=== PATIENT | male | born 1950 | race Caucasian/White ===

== ENCOUNTER → 2024-10-08 07:33 | Outpatient (REF) | payer MEDICARE, BC, SELFPAY | LOC: MRI 07:33 | PROVIDERS: ATTENDING PHYSICIAN Internal Medicine Cardiovascular Disease; FAMILY PHYSICIAN Internal Medicine | DX: I42.8 Other cardiomyopathies (principal); I50.20 Unspecified systolic (congestive) heart failure | CPT/HCPCS: 75561; 75565; A9585 ==

== ENCOUNTER 2024-10-11 11:59 | Inpatient (IN) | payer MEDICARE, BC, SELFPAY ==
[2024-10-11] VITALS (15 sets, daily range): BP systolic 127–164; BP diastolic 50–89; BMI 24.5
--- NOTE | 2024-10-11 15:11 | ITS.CL.ICD ---
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
Implantable Cardioverter Defibrillator
Procedure Report:
ICD IMPLANTATION REPORT
Date of Procedure: October 11, 2024
Primary set off blocker: Dr. Carlos asencio
tube machine operator helper: You Hwang M.D.
PROCEDURES:
BiV ICD Implant
HISTORY:
Symptomatic type II second-degree AV block with no known reversible cause
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
Echocardiogram 09/14/2024 showed LVEF 25-30%
He has left bundle branch block QRS escape rhythm and given his heart block he will require 100% ventricular pacing.
NYHA class 3
Primary prevention
Life expectancy > 1 year
Lidocaine with epi was used for local anesthesia. Central venous access was obtained via axillary venipuncture. An incision was made along the left chest and a pre-pectoral pocket was formed. Using a Seldinger technique and peel-away sheaths, the
pacing leads were placed under fluoroscopic guidance. Once testing (see below) showed adequate and stable function, the leads were secured using the suture sleeves. The pocket was liberally irrigated with antibiotic solution. The leads were
connected to the generator header and the leads and generator were placed within the pocket. Fluoroscopy confirmed stable lead position. The pocket was closed in the typical fashion.
Antibiotic pouch was used
Initially, attempts were made at left bundle branch pacing for cardiac resynchronization however adequate QRS morphology could not be achieved despite multiple attempts.
Then, we moved onto standard biventricular pacing for cardiac resynchronization.
CORONARY SINUS VENOGRAPHY:
The coronary sinus ostium was cannulated and venography was performed using a balloon occlusion technique. 20 cc contrast used.
IMPLANTS:
ICD Medtronic [id number], SN RTC [id number] S , Left Pectoral
RA Medtronic 5076, SN PJNBDB 881 V
RV Medtronic 6935M, SN TDL [id number] V
LV Medtronic 4798, SN QFX [id number] V
LV lead tip: Mid to apical, lateral and posterior via a posterior lateral cardiac vein
There is diaphragmatic stimulation at high outputs using LV1, excluding LV1 there is no diaphragmatic stimulation at maximal outputs
DEVICE TESTING:
Sensing: RA 1.5, RV 16 mV
Capture: RA 0.5 V @ 0.4 ms, RV 0.75 V @ 0.4ms, LV 0.75 V@ 0.4ms
Ohms: RA 646, RV 456, LV 855
FINAL PROGRAMMING:
Stef Pacing: DDD 50�130
Tachy parameters:
VF: 188 bpm, ATP X 1, Shock
COMPLICATIONS:
None
CONCLUSIONS:
Successful implantation of [employer] BLANKET MAKER defibrillator using coronary sinus vein branch for biventricular pacing/cardiac resynchronization
Normal function of ICD and leads at implant testing.
RECOMMENDATIONS:
Telemetry monitoring, CXR
Office wound check in 5-7 days (Dr Asencio).
Initiate Eliquis 5 mg twice daily given LV noncompaction and cardiomyopathy with LV dysfunction resulting in higher risk of LV thrombus and stroke.
Eliquis 5 mg twice daily to start on October 15
Previously given heart block he could not tolerate beta-andrez. Now that he has pacing support we will initiate beta-andrez therapy
Coreg 3.125 mg twice daily
He will maintain Entresto at current dose
He will continue cardiovascular care with Dr. Carlos asencio
Copy: Dr Carlos Asencio
--- NOTE | 2024-10-11 16:45 | CM ---
Chart reviewed. Patient is independent of ADLS, lives with his , 2 STH, 1 [facility], 0 DME. Plan is for the patient return home. CM to follow
--- NOTE | 2024-10-11 16:46 | CM ---
Pricing on [employer] is $194 for a 30 day supply. Patient's plan pays 30% of cost. Patient is agreeable. I placed a free 30 day coupon in the patient's red discharge folder.
[2024-10-11] MEDS: TYLENOL 650 MG PO (18:42)
[2024-10-11] MEDS: TEGRETOL 200 MG PO (19:55)
[2024-10-11] MEDS: COREG 3.125 MG PO (19:56)
[2024-10-11] MEDS: ENTRESTO 24 MG/26 MG 1 TAB PO (19:56)
[2024-10-11] MEDS: TORADOL 10 MG IV (22:01)
[2024-10-11] MEDS: LIPITOR 40 MG PO (22:01)
[2024-10-11] MEDS: MELATONIN 5 MG PO (22:01)
[2024-10-12 04:38] VITALS: BP 144/77
[2024-10-12] MEDS: TYLENOL 650 MG PO (04:50)
[2024-10-12 05:05] VITALS: BMI 24.7
[2024-10-12 05:35] LABS: Hematocrit 32.7 % (39.0-52.0); Hemoglobin 11.2 g/dL (13.0-18.0); Mean Corp Hgb Conc. 34.3 g/dL (33.0-37.0); Mean Corpuscular Hgb 29.1 pg (27.0-31.0); Mean Corpuscular Volume 84.9 fL (80.0-94.0); Mean Platelet Volume 8.7 fL (7.4-10.4); Platelet Count 125 10^3/uL (130-400); Red Blood Cell Count 3.85 10^6/uL (4.70-6.10); Red Cell Dist. Width 13.7 % (11.5-14.5); White Blood Cell Count 3.4 10^3/uL (4.8-10.8)
[2024-10-12 05:56] LABS: Blood Urea Nitrogen 14 mg/dl (9-20); Calcium 8.2 mg/dl (8.4-10.2); Carbon Dioxide 25 mmol/L (22-30); Chloride 100 mmol/L (98-107); Estimated Creatinine Clearance 96 ml/min; Glucose 87 mg/dl (70-99); Potassium 3.9 mmol/L (3.5-5.1); Sodium 128 mmol/L (135-145); eGFR > 60.00
--- NOTE | 2024-10-12 06:10 | PTCARENOTE ---
Pt Vpaced on monitor.C/oleft chest pain 02/05. PRN Tylenol given and effective. Pt assist x1 in the room
[2024-10-12 06:44] LABS: Hepatitis C Antibody Negative (Negative)
[2024-10-12 07:10] VITALS: BP 139/71
[2024-10-12] MEDS: ENTRESTO 24 MG/26 MG 1 TAB PO (08:17)
[2024-10-12] MEDS: LOW STRENGTH ASPIRIN 81 MG PO (08:17)
[2024-10-12] MEDS: COREG 3.125 MG PO (08:17)
[2024-10-12] MEDS: TEGRETOL 200 MG PO (08:17)
[2024-10-12] MEDS: KCL 10 MEQ PO (08:17)
[2024-10-12] MEDS: LASIX 20 MG PO (08:18)
--- NOTE | 2024-10-12 08:40 | W.PN.CARDCBS ---
Addendum entered and electronically signed by Kuldip Nj DO 10/12/24 11:05:
I saw and examined the patient.
The Personnel Arbitrator's note was reviewed and I agree with the note.
Comment:
NAD, AOx3
S1, S2, RRR
CTAB, non labored, no wheeze
SNTND bsx4
L CW Dressing with moderate amount of drainage marked
No edema
Ext warm, dry
telemetry APVP, ASVP
EKG BIVP
PCP: Delroy Hurtado MD
CDY: Carlos Asencio MD
Impression:
Chronic HFrEF 25-30%
NICMP
LBBB
post BiV ICD implant Medtronic 10/11/24
intermittent 2nd degree AVB
HTN
Prostate cancer
LV noncompaction syndrome
trigeminal neuralgia
pancytopenia
Plan:
post device, site with moderate amount of marked drainage
mild inc pain relief with Tylenol
CXR no PTX
HF continue Entresto, lasix, will add carvedilol 3.125mg bid, will discuss initiation of SGLT2i and MMA with outpt apprentice painter brush
Initiate Eliquis 5 mg twice daily on Sunday 10/15 given LV noncompaction and cardiomyopathy with LV dysfunction resulting in higher risk of LV thrombus and stroke.
discontinue ASA with starting OAC
Reassess Echo in 3-6 mo
Activity restrictions reviewed
inc check 1 week at [facility]
continue cardiac care with Dr. Asencio
Stable fr DC home
Original Note:
Today's Communication / Plan
-
stable for d/c home
Impression / Plan
-
PCP: Delroy Hurtado MD
CDY: Carlos Asencio MD
Impression:
Chronic HFrEF 25-30%
NICMP
LBBB
post BiV ICD implant Medtronic 10/11/24
intermittent 2nd degree AVB
HTN
Prostate cancer
LV noncompaction syndrome
trigeminal neuralgia
pancytopenia
Plan:
post device, site with moderate amount of marked drainage
mild inc pain relief with Tylenol
tele AsVpaced
CXR no PTX
HF continue Entresto, lasix, will add carvedilol 3.125mg bid, will discuss initiation of SGLT2i and MMA with outpt apprentice painter brush
Initiate Eliquis 5 mg twice daily on Sunday 10/15 given LV noncompaction and cardiomyopathy with LV dysfunction resulting in higher risk of LV thrombus and stroke.
discontinue ASA with starting OAC
Reassess Echo in 3-6 mo
Activity restrictions reviewed
inc check 1 week at [facility]
continue cardiac care with Dr. Asencio
home today
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
Subjective
Date of Service: October 12, 2024
no cp, sob, mild incisional pain
Objective
Labs:
10/12/24 04:45
10/12/24 04:44
Labs
Hgb 11.2 g/dL (13.0-18.0) L 10/12/24 04:45
Hct 32.7 % (39.0-52.0) L 10/12/24 04:45
Plt Count 125 10^3/uL (130-400) L 10/12/24 04:45
Sodium 128 mmol/L (135-145) L 10/12/24 04:44
Potassium 3.9 mmol/L (3.5-5.1) 10/12/24 04:44
BUN 14 mg/dl (9-20) 10/12/24 04:44
Creatinine 0.7 mg/dL (0.7-1.3) 10/12/24 04:44
Glucose 87 mg/dl (70-99) 10/12/24 04:44
Vital Signs and I&O:
Vital Signs
Temp Pulse Resp BP Pulse Ox
97.6 F 62 20 139/71 97
10/12/24 07:12 10/12/24 08:15 10/12/24 07:12 10/12/24 07:10 10/12/24 07:12
Vital Signs
Temp Pulse Resp BP Pulse Ox
97.6 F 62 20 139/71 97
10/12/24 07:12 10/12/24 08:15 10/12/24 07:12 10/12/24 07:10 10/12/24 07:12
Intake & Output
10/10/24 10/11/24 10/12/24 10/13/24
06:59 06:59 06:59 06:59
Intake Total 960 / 960
Balance 960 / 960
Physical Exam
Physical Exam
NAD, AOx3
S1, S2, RRR
CTAB, non labored, no wheeze
SNTND bsx4
L CW Dressing with moderate amount of drainage marked
--- NOTE | 2024-10-12 08:54 | PTCARENOTE ---
Assumed care at 0700. Pressure dressing removed earlier, bloody drainage on Aquacel dressing, traced on dressing. Immobilizer removed. V-paced, VSS, pain to left shoulder improved since removing the pressure dressing. Eating breakfast, call joseph in
reach
--- NOTE | 2024-10-12 10:52 | PTCARENOTE ---
Patient discharged to home with spouse. Written and oral instructions given, activity precautions reviewed with patient and spouse. They verbalized understanding. Escorted to main lobby in a wheelchair
--- NOTE | 2024-10-12 11:05 | W.DS.TRANS ---
DC Summary - Media Consultant
-
Discharge Instructions:
Sleep Apnea Risk Low
Discharge Diagnosis/Procedures BiV ICD implant
Diet Low Cholesterol,2 Gram Sodium
Driving Restrictions No driving for 1 week
Bathing Restrictions OK to Shower
Specialty Instructions Weigh Daily
Instructions:
Stand-Alone Forms: DC Inst - Implanted Device
Changes to Home Medications: Yes
Discharge Medications:
DC Medications w/original date entered in [facility]
alfuzosin 10 mg tablet,extended release 24 hr 10 mg PO DAILY 10/11/24
atorvastatin 40 mg tablet 40 mg PO HS 10/11/24
butalbital 50 mg-acetaminophen 300 mg-caffeine 40 mg-codeine 30 mg cap (Fioricet with Codeine) 1 cap PO Q4H PRN as needed 10/11/24
carbamazepine 200 mg tablet 200 mg PO BID 10/11/24
cholecalciferol (vitamin D3) 50 mcg (2,000 unit) tablet (Vitamin D3) 50 mcg PO DAILY 10/11/24
furosemide 20 mg tablet 20 mg PO DAILY 10/11/24
multivitamin 1 tab PO DAILY 10/11/24
potassium chloride 10 mEq tablet,extended release 10 meq PO DAILY 10/11/24
sacubitril 24 mg-valsartan 26 mg tablet (Entresto) 1 tab PO BID 10/11/24
apixaban 5 mg tablet (Eliquis) 5 mg PO BID #60 tabs 10/12/24
carvedilol 3.125 mg tablet 3.125 mg PO BID #60 tabs 10/12/24
Home Medication Changes
stop asa, new to carvedilol and eliquis
Pending Results: No
== END 2024-10-12 10:57 | disposition home or self-care (01) | DRG 277 ==
LOC: IVU 11:59
PROVIDERS: Nurse Practitioner Adult Health; ADMITTING PHYSICIAN Internal Medicine Cardiovascular Disease; FAMILY PHYSICIAN Internal Medicine; OTHER PHYSICIAN Internal Medicine Cardiovascular Disease
PROC: 0JH609Z Insertion of Cardiac Resynchronization Defibrillator Pulse Generator into Chest Subcutaneous Tissue and Fascia, Open Approach (ICD-10-PCS; 2024-10-11)
PROC: 02H63KZ Insertion of Defibrillator Lead into Right Atrium, Percutaneous Approach (ICD-10-PCS; 2024-10-11)
PROC: 02HK3KZ Insertion of Defibrillator Lead into Right Ventricle, Percutaneous Approach (ICD-10-PCS; 2024-10-11)
PROC: 02H43KZ Insertion of Defibrillator Lead into Coronary Vein, Percutaneous Approach (ICD-10-PCS; 2024-10-11)
DX: I11.0 Hypertensive heart disease with heart failure (principal); D61.818 Other pancytopenia; I50.22 Chronic systolic (congestive) heart failure; I42.8 Other cardiomyopathies; I44.7 Left bundle-branch block, unspecified; I44.1 Atrioventricular block, second degree; G50.0 Trigeminal neuralgia; Z79.899 Other long term (current) drug therapy; Z85.46 Personal history of malignant neoplasm of prostate
CPT/HCPCS: 33225; 33249; 71045; 80048; 83735; 85027; 86803; 93005; C1769; C1777; C1882; C1887; C1892; C1898; C1900

== ENCOUNTER → 2025-05-09 13:20 | Outpatient (REF) | payer MEDICARE, BC, SELFPAY | LOC: MRI 13:20 | PROVIDERS: ATTENDING PHYSICIAN Psychiatry & Neurology Neurology; FAMILY PHYSICIAN Internal Medicine; REFERRING PHYSICIAN Orthopaedic Surgery | DX: G50.0 Trigeminal neuralgia (principal) | CPT/HCPCS: 70553; 71046; 73721; 76014; 76015; A9575 ==